=== PATIENT | female | born 1960 | race Two or more races ===

== ENCOUNTER 2018-01-30 06:15 | Emergency (ER) | payer BC, OTHER ==
[~2018-01-30] VITALS: Ht 162.6 cm; Wt 59.0 kg
[2018-01-30] MEDS ORDERED: LEVOXYL75 MCG (06:27)
== END 2018-01-30 15:39 | disposition home or self-care (01) ==
LOC: ER 06:15
DX: R10.84 Generalized abdominal pain (principal)

== ENCOUNTER 2021-11-05 11:34 | Emergency (ER) | payer BC, OTHER ==
[~2021-11-05] VITALS: Ht 162.6 cm; Wt 57.6 kg
[~2021-11-05 11:34] MED LIST: LEVOXYL75 MCG
== END 2021-11-05 14:32 | disposition home or self-care (01) ==
LOC: ER 11:34
DX: U07.1 COVID-19 (principal); B34.8 Other viral infections of unspecified site; R09.81 Nasal congestion; R05.9 Cough, unspecified